=== PATIENT | male | born 1970 | race Caucasian/White ===

== ENCOUNTER 2019-10-23 21:46 | Emergency (ER) | payer BC ==
[2019-10-23 21:54] VITALS: O2SAT 99
--- NOTE | 2019-10-23 22:36 | ERPHSYRPT ---
- History of Present Illness Time Seen by Provider: 10/23/19 22:00 Source: patient, family Exam Limitations: no limitations Patient Subjective Stated Complaint: pt cut his finger Triage Nursing Assessment: pt cut his finger on a box, knuckle of left ring finger. 1cm U shape to left ring finger, small amt of bleeding noted. Physician History: This is a right-handed white male who presents with a laceration to the knuckle of the left index finger. The laceration was accidental and occurred when he was cutting boxes prior to arrival. Patient's tetanus status is up-to-date receiving a tetanus shot approximately 3 years ago. Timing/Duration: today Quality: painful Severity: mild Location: feet (Left index finger) Possible Causes: other (Accidental laceration) Associated Symptoms: denies symptoms Allergies/Adverse Reactions: No Known Drug Allergies Allergy (Verified 10/23/19 22:01) Home Medications: No Reportable Medications [No Reported Medications] 10/23/19 [History] Hx Tetanus, Diphtheria Vaccination/Date Given: Yes Hx Influenza Vaccination/Date Given: No Hx Pneumococcal Vaccination/Date Given: No Immunizations Up to Date: Yes Travel Risk - International Travel Have you traveled outside of the country in past 3 weeks: No - Coronavirus Screening Are you exhibiting any of the following symptoms?: No Close contact with a COVID-19 positive Pt in past 14-21 Days: No - Review of Systems Constitutional: No Symptoms Eyes: No Symptoms Ears, Nose, & Throat: No Symptoms Respiratory: No Symptoms Cardiac: No Symptoms Abdominal/Gastrointestinal: No Symptoms Genitourinary Symptoms: No Symptoms Musculoskeletal: No Symptoms Skin: Other (Laceration index finger left hand knuckle) Neurological: No Symptoms Psychological: No Symptoms Endocrine: No Symptoms Hematologic/Lymphatic: No Symptoms Immunological/Allergic: No Symptoms All Other Systems: Reviewed and Negative - Past Medical History Pertinent Past Medical History: Yes Neurological History: No Pertinent History ENT History: No Pertinent History Cardiac History: No Pertinent History Respiratory History: No Pertinent History Endocrine Medical History: No Pertinent History Musculoskeletal History: No Pertinent History GI Medical History: No Pertinent History History: No Pertinent History Psycho-Social History: No Pertinent History Male Reproductive Disorders: No Pertinent History Other Medical History: sliced tendon in half on left pinky finger, 03/2017 - Past Surgical History Past Surgical History: No Neuro Surgical History: No Pertinent History Cardiac: No Pertinent History Respiratory: No Pertinent History Gastrointestinal: No Pertinent History Genitourinary: No Pertinent History Musculoskeletal: No Pertinent History Male Surgical History: No Pertinent History - Social History Smoking Status: Current every day smoker How long have you smoked: 15 yrs Exposure to second hand smoke: Yes Alcohol Use: occasional (Patient admits to occasional alcohol use, he states he drinks 6-7 beers today) Drug Use: none Patient Lives Alone: No - Nursing Vital Signs Nursing Vital Signs: Initial Vital Signs Temperature 98.1 F 10/23/19 21:52 Pulse Rate 81 10/23/19 21:52 Respiratory Rate 17 10/23/19 21:52 Blood Pressure 142/97 10/23/19 21:52 O2 Sat by Pulse Oximetry 99 10/23/19 21:52 Pain Scale Pain Intensity 0 - Physical Exam General Appearance: no apparent distress, alert, anxiety Eye Exam: PERRL/EOMI, eyes nml inspection Ears, Nose, Throat Exam: normal ENT inspection, moist mucous membranes Neck Exam: normal inspection, non-tender, supple, full range of motion Respiratory Exam: normal breath sounds, lungs clear, airway intact, No chest t enderness, No respiratory distress Gastrointestinal/Abdomen Exam: No tenderness Rectal Exam: not done Back Exam: normal inspection, normal range of motion, No CVA tenderness, No vertebral tenderness Extremity Exam: normal range of motion, pelvis stable Neurologic Exam: alert, oriented x 3, cooperative, responder II-XII nml as tested, normal mood/affect, nml cerebellar function, nml station & gait Skin Exam: laceration (Left index finger knuckle. Neurovascularly intact. Tendon intact. On the dorsal knuckle there is a L-shaped laceration that opens much more widely with flexion of the index finger. There is no foreign body present. It begins to bleed when he flexes the left index finger.) SpO2 Interpretation: normal SpO2: 99 O2 Delivery: Room Air Procedures - Laceration/Wound Repair Left Dorsal Finger Wound Location: Left, hand (Index finger knuckle1) Wound Length (cm): 1 (L-shaped) Wound's Depth, Shape: superficial, linear Wound Explored: clean (No foreign body in bloodless field to base) Irrigated: Yes Hibiclens Prep: Yes Anesthesia: local, 1% Lidocaine Volume Anesthetic (ccs): 3 Wound Repaired With: sutures Suture Size/Type: 4-0, prolene Number of Sutures: 4 Layer Closure?: No Sterile Dressing Applied?: Yes Splint Applied?: Yes Type of Splint Applied: Finger splint Progress: 10/23/19 22:37 The laceration repair site suture line was cleaned with Hibiclens solution then dried. Bacitracin ointment was applied. A sterile dressing was applied followed by a finger splint. There were no complications patient told the procedure well. - Course Nursing assessment & vital signs reviewed: Yes - Progress Progress: improved Counseled pt/family regarding: diagnosis, need for follow-up - Departure Departure Disposition: Home Clinical Impression: Finger laceration Condition: Stable Critical Care Time: No Referrals: TRANG COOK [Primary Care Provider] - Additional Instructions: Keep dry for 24 hours. After 24 hours may remove dressing and wash daily with soap and water. Apply a thin layer of antibiotic ointment daily after washing. Then reapply bandage to site. May continue using the finger splint. Suture removal in 8 to 10 days.
[2019-10-23] MEDS ORDERED: BACIGUENT PACKET TP ONE (22:42)
[2019-10-23 22:50] VITALS: BP 128/99; PULSE 72
== END 2019-10-23 22:54 | disposition home or self-care (01) ==
LOC: ED 21:46
DX: S61.211A Laceration without foreign body of left index finger without damage to nail, initial encounter (principal); W26.8XXA Contact with other sharp object(s), not elsewhere classified, initial encounter; Y99.9 Unspecified external cause status
CPT/HCPCS: 12001; 29131; 99283; A9270-GY